=== PATIENT | male | born 1955 | race Caucasian/White ===

== ENCOUNTER → 2024-06-23 07:42 | Outpatient (REF) | payer MEDICARE, SELFPAY | LOC: DHCBC/DCA 07:42 | PROVIDERS: ATTENDING PHYSICIAN Nurse Practitioner Gerontology; FAMILY PHYSICIAN Registered Nurse | DX: I25.10 Atherosclerotic heart disease of native coronary artery without angina pectoris (principal); I25.5 Ischemic cardiomyopathy; R53.83 Other fatigue | CPT/HCPCS: 78452; 93017; A9500 ==

== ENCOUNTER → 2024-06-24 14:08 | Outpatient (REF) | payer MEDICARE, SELFPAY | LOC: HWRCS 14:08 | PROVIDERS: ATTENDING PHYSICIAN Nurse Practitioner Gerontology; FAMILY PHYSICIAN Registered Nurse | DX: I25.10 Atherosclerotic heart disease of native coronary artery without angina pectoris (principal); I25.5 Ischemic cardiomyopathy; I77.810 Thoracic aortic ectasia | CPT/HCPCS: 93306 ==

== ENCOUNTER 2024-07-03 07:37 | Day surgery (SDC) | payer MEDICARE, SELFPAY ==
[2024-07-03] VITALS (10 sets, daily range): BP systolic 75–132; BP diastolic 24–87; BMI 28.0
--- NOTE | 2024-07-03 08:49 | ITS.CL.CATH ---
[facility] - Catheterization
Cardiac Catheterization
Procedure Report:
CARDIAC CATHETERIZATION REPORT
Date of Procedure: 07/03/2024
Referring: Naseem Rojas MD
Indication: Known CAD with exertional symptoms and ischemic stress test
�
HEMODYNAMIC DATA
AO: 128/84
LV: 128/20
�
LEFT VENTRICULOGRAPHY: Dilated left ventricle with mid inferior akinesis and otherwise global hypokinesis. The LVEF is 31%. The ventricular function is similar to the prior procedure from 2019
�
CORONARY ANGIOGRAPHY
Dominance: Right
Left Main: Normal
LAD: Widely patent proximal to mid LAD stent with 30% distal LAD stenosis and otherwise trivial luminal irregularities in the LAD proper. The large first diagonal branch remains occluded at the ostium with retrograde filling via left coronary
collaterals unchanged from the 2019 study
Circumflex: There is a new 60% proximal circumflex stenosis past the takeoff of the large OM1. The circumflex gives rise to a large OM1 which has 50% ostial stenosis and a large OM 2 which has a widely patent stent (2018) with no restenosis
RCA: Large dominant vessel with widely patent proximal RCA stent (2018). There is 30% distal RCA stenosis past the crux. The large PDA has 30% ostial stenosis also unchanged compared with the 2019 study. The RCA terminates with a moderate-sized
right posterolateral system.
FloWire assessment: At the procedure conclusion we proceeded with the evaluation of the functional significance of the 60% proximal circumflex stenosis. Heparin is used for anticoagulation. An EBU 3.75 guide catheter was used. A RotaryView wire was
advanced into the circumflex and down into OM 2. iFR measurements were 1.0, 1.0, and 0.99. These are consistent with nonflow-limiting disease.
�
Closure Device: None-the procedure was performed via the right radial artery. The Ambrose's test was normal prior to the procedure.
�
Radiation (mGy): 409
DAP (cm2.Gy): 41.8
Fluoroscopy time: 4.2 minutes
�
CONCLUSIONS
1:�Elevated LVEDP
2:�Dilated left ventricle with inferior akinesis and otherwise global hypokinesis with EF 31%
3. Stable CAD with patent stents in the LAD, large OM 2, and proximal RCA. A new 60% proximal circumflex stenosis was evaluated with IFR and has normal flow
4. Continue medical therapy for CAD and LV dysfunction. Consider trial of Entresto as his symptoms likely reflect CHF
5. Continue Eliquis and low-dose aspirin. Given stents and all 3 of his major vessels, I would not view him as a appropriate candidate for complete discontinuation of antiplatelet therapy
�
�
Copy to: Naseem Rojas MD, SERA Khoury
�
Edison Kaufman MD, FAC, [facility]
[2024-07-03 15:12] LABS: ACT-LR - POC > 397 Seconds (116-155)
== END 2024-07-03 12:04 | disposition home or self-care (01) ==
LOC: CATH 07:37
PROVIDERS: ATTENDING PHYSICIAN Internal Medicine Cardiovascular Disease; FAMILY PHYSICIAN Registered Nurse; OTHER PHYSICIAN Internal Medicine Cardiovascular Disease
DX: I25.10 Atherosclerotic heart disease of native coronary artery without angina pectoris (principal); Z95.5 Presence of coronary angioplasty implant and graft; Z79.01 Long term (current) use of anticoagulants
CPT/HCPCS: 85347; 93458; 93571; C1769; C1894; Q9967

== ENCOUNTER → 2024-09-21 08:36 | Outpatient (REF) | payer MEDICARE, SELFPAY | LOC: RST 08:36 | PROVIDERS: ATTENDING PHYSICIAN Registered Nurse | DX: R13.19 Other dysphagia (principal) | CPT/HCPCS: 74230; 92611 ==

== ENCOUNTER → 2024-10-14 06:18 | Day surgery (SDC) | payer MEDICARE, SELFPAY | LOC: GI 06:18 | PROVIDERS: ATTENDING PHYSICIAN Internal Medicine | DX: K22.2 Esophageal obstruction (principal); K21.00 Gastro-esophageal reflux disease with esophagitis, without bleeding; K22.10 Ulcer of esophagus without bleeding; R13.10 Dysphagia, unspecified; K44.9 Diaphragmatic hernia without obstruction or gangrene; K29.70 Gastritis, unspecified, without bleeding | CPT/HCPCS: 43239; 43249; 88305; 88342 ==

== ENCOUNTER 2024-11-11 11:06 | Emergency (ER) | payer MEDICARE, SELFPAY ==
[2024-11-11 11:11] VITALS: BP 135/90
--- NOTE | 2024-11-11 11:39 | ED.GENMED ---
History of Present Illness
General
Chief Complaint: Eye Problems
Time Seen by Provider: 11/11/24 11:17
History of Present Illness
History of Present Illness:
69-year-old male presents to the emergency department for evaluation of left upper eyelid erythema and swelling for the past several days. Has a history of blepharitis due to a stye has been using warm compresses and topical erythromycin however
symptoms are worsening. Denies any vision changes or fevers.
Past History
Past History
ED Past Medical History: CAD, Cancer, GERD, HTN and Other
ED Past Surgical History: Cardiac, Orthopedic and Urological
Social History
Tobacco: Non-smoker
Alcohol: Occasional
Personal: Partner (Same sex)
Employment: Employed
Family History
Family History: Unable to obtain
Review of Systems
Review of Systems
Allergies reviewed?: Yes
All Other Systems: ROS reviewed and negative except as documented in HPI and ROS
Phy Exam
Physical Exam
Physical Exam:
GEN: Well appearing, NAD, WDWN
HEENT: Oral mucosa moist, no scleral icterus. Diffuse blepharitis to the left upper lid, no active discharge, no vesicular lesions, palpable hordeolum to the middle portion of the lid. No signs of orbital cellulitis
Cardiac: Regular rate
Lung: No respiratory distress, no tachypnea
MSK: No gross deformity or injuries
Skin: Good color, no pallor or jaundice, no rashes
Neuro: AO x3, moves all extremities freely
Psych: Calm, cooperative
Course
Vital Signs
Initial and Last Documented VS:
Initial Vital Signs
Temp Pulse Resp BP Pulse Ox
98.1 F 74 18 135/90 98
11/11/24 11:11 11/11/24 11:11 11/11/24 11:11 11/11/24 11:11 11/11/24 11:11
Last Documented Vital Signs
Temp Pulse Resp BP Pulse Ox
98.1 F 74 18 135/90 98
11/11/24 11:11 11/11/24 11:11 11/11/24 11:11 11/11/24 11:11 11/11/24 11:11
MDM/Problems Addressed
MDM/Problems Addressed:
Will add oral antibiotics given failure of topical antibiotics and history of HIV positive status, recommend outpatient ophthalmology follow-up
*Critical Care Note
Total Time (30-74mins, 75-104mins- exclusive of procedures): Not Applicable
ED Attending Note
-
Portions of this chart may have been created with voice recognition software.� Occasional wrong word or��sound alike� substitutions may have occurred due to the inherent limitations of voice recognition software.
Discharge Plan
Departure
Patient Disposition: Home (Routine Discharge)
Date of Disposition: 11/11/24
Time of Disposition: 11:39
Patient with high blood pressure during this ER visit?: No
Discharge Problem:
Blepharitis of left upper eyelid
Instructions: Blepharitis
Prescriptions:
New
cephalexin 500 mg capsule
500 mg PO Q8H 5 Days Qty: 15 0RF
No Action
hydrocodone-acetaminophen 5-325 mg Tablet
1 tab PO BID PRN (Reason: LOW BACK PAIN )
tadalafil 2.5 mg Tablet
2.5 mg PO DAILY PRN (Reason: ED)
Eliquis 5 mg Tablet
5 mg PO BID
metoprolol succinate 12.5 MG tablet extended release 24 hr
12.5 mg PO BID
sennosides [senna] 8.6 mg Tablet
34.4 mg PO DAILY
rosuvastatin 20 mg Tablet
20 mg PO DAILY
Cabenuva 600 mg/3 mL- 900 mg/3 mL Suspension,Extended Release
600 - 900 ml IM .[id number]
aspirin 81 mg Tablet,Chewable
81 mg PO DAILY
Referrals:
Patricia Berumen MD [Active] -
Tre Martins CRNP [Family Provider] -
Activity Restrictions/Additional Instructions:
Continue topical antibiotics and warm compresses
Follow up with ophthalmology if symptoms do not improve
Interventions
Interventions:
*Risk Screen - Suicide Last Done: 11/11/24 11:11
*General Assessment Last Done: 11/11/24 11:11
*Neglect/Abuse Screening Last Done: 11/11/24 11:11
*Nursing Disposition Last Done: 11/11/24 12:00
Discharge Date and Time
Discharge Date/Time: 11/11/24 12:01
Print Language: DIVEHI
== END 2024-11-11 12:01 | disposition home or self-care (01) ==
LOC: EMR 11:06
PROVIDERS: EMERGENCY PHYSICIAN Emergency Medicine; FAMILY PHYSICIAN Registered Nurse
DX: H01.004 Unspecified blepharitis left upper eyelid (principal); I25.10 Atherosclerotic heart disease of native coronary artery without angina pectoris; K21.9 Gastro-esophageal reflux disease without esophagitis; I10 Essential (primary) hypertension; Z21 Asymptomatic human immunodeficiency virus [HIV] infection status
CPT/HCPCS: 99282

== ENCOUNTER → 2024-12-18 14:29 | Outpatient (REF) | payer MEDICARE, SELFPAY | LOC: RAD 14:29 | PROVIDERS: ATTENDING PHYSICIAN Anesthesiology Pain Medicine; FAMILY PHYSICIAN Registered Nurse | DX: M41.9 Scoliosis, unspecified (principal); Z95.0 Presence of cardiac pacemaker; Z96.82 Presence of neurostimulator | CPT/HCPCS: 72072 ==

== ENCOUNTER 2025-01-21 17:12 | Emergency (ER) | payer MEDICARE, SELFPAY ==
[2025-01-21 17:27] VITALS: BP 139/94
[2025-01-21 17:39] VITALS: BMI 28.0
--- NOTE | 2025-01-21 19:36 | ED.SKININJ ---
HPI-Injury
General
Chief Complaint: Wound Check/Suture Removal
Source: patient
Exam Limitations: none
Time Seen by Provider: 01/21/25 17:55
Nursing documentation reviewed up to this point in time: agreed with
History of Present Illness-Injury
Is this injury a work related problem?: No
Is pt an associate of [facility]?: No
Initial Injury comments:
Patient had a hair transplant approx 4 weeks ago [facility]. He is here to have sutures removed. No other complaints.
Past History
Past History
ED Past Medical History: CAD, Cancer, GERD, HTN and Other
ED Past Surgical History: Cardiac, Orthopedic and Urological
Social History
Tobacco: Non-smoker
Alcohol: Occasional
Personal: Partner (Same sex)
Employment: Employed
Family History
Family History: Unable to obtain
Review of Systems
Review of Systems
Allergies reviewed?: Yes
All Other Systems: ROS reviewed and negative except as documented in HPI and ROS
Constitutional: Reports no symptoms
Musculoskeletal: Reports no symptoms
Skin: Reports other (approx 12 cm surgical incision to posterior scalp with running stitch intact. No s/s infection)
Neurological: Reports no symptoms
Psychiatric: Reports no symptoms
Phy Exam
General Physical Exam
General Presentation: well appearing and no apparent distress
General age: appears stated age
General Skin: warm and dry
General Habitus: normal
General Mental: alert
Musculoskeletal Exam
Musculoskeletal Exam: full ROM
Skin Exam
Skin Exam: other (Approx 12cm surgical incision to posterior scalp with running suture intact. All skin edges together. No s/s infection. Suture removed by me without incident using forcep and 11blade. )
Psychiatric Exam
Psychiatric Exam: normal mood/affect
Course
Vital Signs
Initial and Last Documented VS:
Initial Vital Signs
Temp Pulse Resp BP Pulse Ox
98.2 F 77 18 139/94 98
01/21/25 17:27 01/21/25 17:27 01/21/25 17:27 01/21/25 17:27 01/21/25 17:27
Last Documented Vital Signs
Temp Pulse Resp BP Pulse Ox
98.2 F 77 18 139/94 98
01/21/25 17:27 01/21/25 17:27 01/21/25 17:27 01/21/25 17:27 01/21/25 17:27
*Critical Care Note
Total Time (30-74mins, 75-104mins- exclusive of procedures): Not Applicable
ED Attending Note
-
Portions of this chart may have been created with voice recognition software.� Occasional wrong word or��sound alike� substitutions may have occurred due to the inherent limitations of voice recognition software.
Discharge Plan
Departure
Patient Disposition: Home (Routine Discharge)
Date of Disposition: 01/21/25
Time of Disposition: 19:35
Patient with high blood pressure during this ER visit?: No
Condition: Good
Covid-19: Not Applicable
Discharge Problem:
Encounter for removal of sutures
Instructions: Stitches Removal
Prescriptions:
No Action
hydrocodone-acetaminophen 5-325 mg Tablet
1 tab PO BID PRN (Reason: LOW BACK PAIN )
tadalafil 2.5 mg Tablet
2.5 mg PO DAILY PRN (Reason: ED)
Eliquis 5 mg Tablet
5 mg PO BID
metoprolol succinate 12.5 MG tablet extended release 24 hr
12.5 mg PO BID
sennosides [senna] 8.6 mg Tablet
34.4 mg PO DAILY
rosuvastatin 20 mg Tablet
20 mg PO DAILY
Cabenuva 600 mg/3 mL- 900 mg/3 mL Suspension,Extended Release
600 - 900 ml IM .[id number]
aspirin 81 mg Tablet,Chewable
81 mg PO DAILY
cephalexin 500 mg capsule
500 mg PO Q8H 5 Days Qty: 15 0RF
Referrals:
Tre Martins CRNP [Family Provider] -
Activity Restrictions/Additional Instructions:
FOllow up with your surgeon as scheduled.
Interventions
Interventions:
*Risk Screen - Suicide Last Done: 01/21/25 17:27
*General Assessment Last Done: 01/21/25 17:27
*Neglect/Abuse Screening Last Done: 01/21/25 17:27
*ED COVID-19 Vaccine History Last Done: 01/21/25 17:27
*Nursing Disposition Last Done: 01/21/25 19:38
ED-Skin Assessment Last Done: 01/21/25 17:39
Discharge Date and Time
Print Language: [id number]
== END 2025-01-21 19:38 | disposition home or self-care (01) ==
LOC: EMR 17:12
PROVIDERS: EMERGENCY PHYSICIAN Emergency Medicine; FAMILY PHYSICIAN Registered Nurse
DX: Z48.02 Encounter for removal of sutures (principal); I25.10 Atherosclerotic heart disease of native coronary artery without angina pectoris; K21.9 Gastro-esophageal reflux disease without esophagitis; I10 Essential (primary) hypertension
CPT/HCPCS: 99281

== ENCOUNTER → 2025-08-25 14:15 | Outpatient (REF) | payer MEDICARE, SELFPAY | LOC: RAD 14:15 | PROVIDERS: ATTENDING PHYSICIAN Student in an Organized Health Care Education/Training Program; FAMILY PHYSICIAN Registered Nurse | DX: Z96.89 Presence of other specified functional implants (principal) | CPT/HCPCS: 72128; 72131 ==